=== PATIENT | female | born 1960 | race Caucasian/White ===

== ENCOUNTER 2017-08-01 07:04 | Emergency (ER) | END 2017-08-01 08:59 | disposition home or self-care (01) ==

== ENCOUNTER 2017-08-08 12:11 | Emergency (ER) | END 2017-08-08 18:54 | disposition home or self-care (01) ==

== ENCOUNTER 2017-08-17 06:59 | Emergency (ER) | END 2017-08-17 09:28 | disposition home or self-care (01) ==

== ENCOUNTER 2017-09-01 16:40 | Day surgery (SDC) | END 2017-09-02 00:31 | disposition home or self-care (01) ==

== ENCOUNTER 2017-11-28 07:20 | Emergency (ER) | END 2017-11-28 10:03 | disposition home or self-care (01) ==

== ENCOUNTER 2018-01-12 12:43 | Observation (INO) | END 2018-01-13 12:13 | disposition home or self-care (01) ==

== ENCOUNTER 2018-08-03 14:30 | Day surgery (SDC) | payer BC, OTHER ==
--- NOTE | 2018-07-30 21:22 | HP ---
Date/Time of Note Date/Time of Note DATE: 07/30/18 TIME: 21:10 Assessment/Plan VTE Prophylaxis SCD applied (from Ns): Yes Pharmacological prophylaxis: heparin Assessment/Plan Problems: (1) Preoperative examination Status: Acute Comment: At this time find Ms. Elaine to be acceptable surgical candidate and concur with your plans to proceed with surgery. Due to the limited nature of the surgery I do not believe that we need to give her stress dose steroids. As such she should do well using all standard routine anesthesia precautions. (2) Essential hypertension Status: Chronic Comment: Adequate control on her current medication regimen (3) Hyperlipidemia Status: Chronic Comment: Adequate control on her current statin therapy Qualifiers: Hyperlipidemia type: pure hypercholesterolemia Qualified Codes: E78.00 - Pure hypercholesterolemia, unspecified (4) Gastroesophageal reflux disease Status: Chronic Comment: Adequate control with her present PPI therapy Qualifiers: Esophagitis presence: without esophagitis Qualified Codes: K21.9 - Gastro- esophageal reflux disease without esophagitis (5) Triple negative malignant neoplasm of breast Status: Chronic Comment: Noted. In remission (6) Polymyalgia rheumatica Status: Chronic Comment: Noted. She has been on steroids for this for very long time and we recently managed to titrate her down to the present dosing regimen. This is a stable physiologic replacement regimen and she should continue with this. (7) Iatrogenic adrenal insufficiency Status: Chronic Comment: On adequate replacement at this time (8) Acquired hypothyroidism Status: Chronic Comment: On adequate thyroid hormone replacement at this time CC: ALAN TODD MD ; HPI/ROS Admit Date/Time Admit Date/Time August 03, 2018 Hx of Present Illness She is a [facility] 57-year-old female being brought in electively for removal of right ankle hardware. She sustained a significant fracture of the right ankle 1 year ago and had hardware placed. She is now coming in for removal of said hardware due to having symptoms relatable to the retained hardware. ROS Constitutional: no complaints (No fevers chills or sweats) Eyes: no complaints ENT: no complaints Respiratory: no complaints Cardiovascular: no complaints Gastrointestinal: no complaints Genitourinary: no complaints Musculoskeletal: other (Right ankle pain) Skin: no complaints Neurologic: no complaints Endocrine: no complaints Psychological: no complaints, nl mood/affect PMH/Family/Social Past Medical History Medical History: cancer ( triple negative breast cancer), GERD, high cholesterol, hypertension, hypothyroid, other (Polymyalgia rheumatica; iatrogenic and renal insufficiency; allergic rhinitis; osteoarthritis; colonic polyposis; history of TIA in 2017) Medications Omeprazole 40 mg every morning; levothyroxine 125 mcg once a day; hydrocortisone 10 mg in the morning 5 mg afternoon 5 mg at bedtime; venlafaxine ER 150 mg once a day; Bystolic 5 mg once a day; atorvastatin 40 mg once a day; vitamin D 2000 units a day; multiple vitamin once a day. 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 Exam Exam Modestly cushingoid appearance Constitutional: alert, oriented Psych: no complaints Head: normocephalic, atraumatic Eyes: nl conjunctiva, EOMI, nl lids, nl sclera, PERRL ENMT: nl external ears & nose, nl lips & teeth, nl nasal mucosa & septum, mucosa pink and moist Neck: supple, non-tender, other (Normal thyroid; no bruits) Respiratory: clear to auscultation, normal air movement Cardiovascular: regular rate and rhythm, nl pulses Gastrointestinal: soft, nl liver, spleen, non-tender Musculoskeletal: nl extremities to inspection, other (Antalgic gait) Extremities: normal pulses Neurological: [employer]OR II-XII intact, nl mental status, nl speech, nl strength Skin: nl ROB Lazcano MD Jul 30, 2018 21:22
[~2018-08-03] VITALS: Ht 170.2 cm; Wt 115.4 kg
[2018-08-03] VITALS (7 sets, daily range): BP systolic 94–131; BP diastolic 53–68; PULSE 74–93; RESP 11–26; Ht 170.2 cm; Wt 115.4 kg
[~2018-08-03 14:30] MED LIST: ASPI325T32 PO; ATOR40TA68 PO; CEFAZOLIN 1 GM INJ ONE; CORT25TA PO; HYDR5TAB PO; HYDR5TAB7 PO; LEVO125T7 PO; NEBI5TAB9 PO; OMEP10SU2 PO; PROPOFOL 200 MG INJ ONE; VENL150C PO
[2018-08-03] MEDS ORDERED: POLYMYXIN B 500000 UNIT INJ ONE (15:33)
--- NOTE | 2018-08-03 15:55 | PREAC ---
Date/Time of Note Date/Time of Note DATE: 08/03/18 TIME: 15:53 Anesthesia Eval and Record Evaluation Time Pre-Procedure Interview DATE: 08/03/18 TIME: 15:53 Age 57 Sex female NPO: 8 hrs Preoperative diagnosis RIGHT PAINFUL ANKLE HARDWARE Planned procedure RIGHT ANKLE REMOVAL OF HARDWARE, IRRIGATION AND DEBRIDEMENT Past Medical History Past Medical History: Includes Cardio: HTN, Dyslipidemia Endo: Hypothyroid, Other (ADRENAL INSUFFICIENCY) Musculoskeletal: Other (POLYMYALGIA RHEUMATICA) Surgery & Anesthesia Issues No known issue Meds Anticoagulation: No Beta Brant within 24 hr: No Reason Beta Brant not given: Pt. not on B-Brant Active Scripts Atorvastatin* (Atorvastatin*) 40 Mg Tablet, 40 MG PO QHS, #60 TAB 1 Refill Prov:RHONDAREI 01/13/18 Aspirin* (Aspirin* EC) 325 Mg Tab, 325 MG PO DAILY, #90 TAB 3 Refills Prov:RHONDAREI GOLDEN 01/13/18 Reported Medications Omeprazole* (Prilosec*) 10 Mg Suspdr.pkt, 10 MG PO AC BREAKFAST, PKT 01/12/18 Hydrocortisone* (Cortef*) 5 Mg Tab, 15 MG PO QAM, #180 TAB 01/12/18 Hydrocortisone* (Cortef*) 5 Mg Tab, 10 MG PO NOON, #120 TAB 01/12/18 Hydrocortisone (Hydrocortisone) 5 Mg Tablet, 5 MG PO QPM, TAB 01/12/18 Cortisone Acetate (Cortisone) 25 Mg Tablet, 15 MG PO QAM, TAB 01/12/18 Venlafaxine Hcl* (Effexor XR*) 150 Mg Cap.sr.24h, 150 MG PO DAILY, CAP 01/12/18 Nebivolol* (Bystolic*) 5 Mg Tab, 5 MG PO DAILY, #30 TAB 01/12/18 Levothyroxine Sodium* (Levothyroxine Sodium*) 125 Mcg Tablet, 125 MCG PO BEFORE BREAKFAST, #30 TAB 01/12/18 Meds reviewed: Yes Allergies Coded Allergies: codeine (Verified Allergy, Unknown, hives, 11/28/17) Allergies Reviewed: Yes Labs/Studies Labs Reviewed: Reviewed by anesthesiologist test: N/A Studies: ECG (INCOMPLETE RBBB), CXR (Calcified aorta consistent with atherosclerotic disease.) Pre-procedure Exam Last vitals Vital Signs Date Temp Pulse Resp B/P (MAP) Pulse Ox O2 O2 Flow FiO2 Time Delivery Rate 08/03/18 98.9 93 16 131/57 92 Room Air 15:47 (81) Airway: Adequate mouth opening, Adequate thyromental dist Mallampati: Mallampati II Teeth: Normal Lung: Normal Heart: Normal ASA Physical Status ASA physical status: 3 Emergency: None Planned Anesthetic General/MAC: TIVA Nerve block: Sciatic (right) Planned Pain Management Single shot nerve block, Parenteral pain med Pre-operative Attestations Prior to commencing anesthesia and surgery, the patient was re-evaluated, there was verification of: *The patient's identity *The results of appropriate recent lab work and preoperative vital signs *The above evaluation not changing prior to induction *Anesthetic plan, risk benefits, alternative and complications discussed with patient/family; questions answered; patient/family understands, accepts and wishes to proceed. Rodrick Welch M.D. Aug 03, 2018 15:55
[2018-08-03] MEDS ORDERED: FENTAnyl 50 MCG/ML VIAL ONE (15:58)
[2018-08-03] MEDS ORDERED: ONDANSETRON 4 MG INJ ONE (15:59)
[2018-08-03] MEDS ORDERED: FENTAnyl 50 MCG/ML VIAL IV PRN ×3 (16:00)
[2018-08-03] MEDS ORDERED: HYDROmorphONE 1 MG/5 ML IV SYRINGE IV PRN ×3 (16:00)
[2018-08-03] MEDS ORDERED: IPRATROPIUM (NEB) 0.5 MG/2.5 ML AMP HHN PRN (16:00)
[2018-08-03] MEDS ORDERED: TRIMETHOBENZAMIDE 100 MG/ML VIAL IM PRN (16:00)
[2018-08-03] MEDS ORDERED: LABETALOL HCL 20MG INJ IV PRN (16:00)
[2018-08-03] MEDS ORDERED: hydrALAzine 20 MG INJ IV PRN (16:00)
[2018-08-03] MEDS ORDERED: MIDAZOLAM 1 MG/ML 2 ML INJ IV PRN (16:00)
[2018-08-03] MEDS ORDERED: DIPHENHYDRAMINE 50 MG INJ IV PRN (16:00)
[2018-08-03] MEDS ORDERED: ONDANSETRON 4 MG INJ IV PRN (16:00)
[2018-08-03] MEDS ORDERED: ALBUTEROL 0.083% (NEB) 2.5 MG/3 ML AMP HHN PRN (16:00)
[2018-08-03] MEDS ORDERED: MEPERIDINE 25 MG INJ IV PRN (16:00)
[2018-08-03] MEDS ORDERED: EPHEDrine SULFATE 50 MG/5 ML SYG IV PRN (16:00)
[2018-08-03] MEDS ORDERED: ROPIVACAINE 0.5 % 30 ML VIAL ONE (16:00)
[2018-08-03] MEDS ORDERED: VENL150T PO (16:00)
[2018-08-03] MEDS ORDERED: ASCO500C10 PO (16:00)
[2018-08-03] MEDS ORDERED: MIDAZOLAM 1 MG/ML 2 ML INJ ONE (16:06)
--- NOTE | 2018-08-03 16:09 | HPN ---
Date/Time of Note Date/Time of Note DATE: 08/03/18 TIME: 16:08 Interval H&P Admission Note Pt. seen H&P reviewed: No system changes ALAN TODD MD Aug 03, 2018 16:09
[2018-08-03] MEDS ORDERED: morphine 2 MG INJ IV PRN (16:30)
[2018-08-03] MEDS ORDERED: KETOROLAC 30 MG INJ IV SCH (16:30)
[2018-08-03] MEDS ORDERED: BACITRACIN 50000 UNITS INJ IRR ONE (17:01)
[2018-08-03] MEDS ORDERED: DEXAMETHASONE 4 MG/ML 5 ML INJ ONE (17:09)
[2018-08-03] MEDS ORDERED: BACITRACIN/POLYMYXIN 28.35 GM OINT TOP ONE (17:33)
--- NOTE | 2018-08-03 18:34 | QN ---
Documentation Job number: [id number] ALAN TODD MD Aug 03, 2018 18:34
--- NOTE | 2018-08-03 18:54 | PAC ---
Date/Time of Note Date/Time of Note DATE: 08/03/18 TIME: 18:54 Post-Anesthesia Notes Post-Anesthesia Note Last documented vital signs Vital Signs Date Temp Pulse Resp B/P (MAP) Pulse Ox O2 O2 Flow FiO2 Time Delivery Rate 08/03/18 74 11 106/68 94 Room Air 18:14 (81) 08/03/18 98.2 18:08 08/03/18 3.0 17:54 Activity: WNL Respiratory function: WNL Cardiovascular function: WNL Mental status: Baseline Pain reasonably controlled: Yes Hydration appropriate: Yes Nausea/Vomiting absent: Yes Rodrick Welch M.D. Aug 03, 2018 18:54
--- NOTE | 2018-08-03 23:40 | OPR ---
DATE OF OPERATION: 08/03/2018 SURGEON: Logan Davis MD MACHINE BRUSHER: None. PREOPERATIVE DIAGNOSES: 1. Right ankle painful hardware. 2. Right ankle draining wound. 3. Right ankle hypertrophic scar. POSTOPERATIVE DIAGNOSES: 1. Right ankle painful hardware. 2. Right ankle draining wound. 3. Right ankle hypertrophic scar. PROCEDURE: 1. Right ankle irrigation and debridement. 2. Right ankle hardware removal. 3. Right ankle revision of hypertrophic scar, 8 cm. 4. Application of amniotic membrane. ANESTHESIOLOGIST: Dr. Welch ANESTHESIA TYPE: MAC with popliteal block. IMPLANTS: [employer]Medx AmnioFix. TOURNIQUET TIME: 43 minutes at 275 mmHg. SPECIMENS: None. DISPOSITION: To PACU. INDICATIONS: The patient is a thin female who sustained a right ankle Maisonneuve fracture, dislocat ion approximately 6 months ago and was indicated for surgery at that time treated with an ORIF approx imately 1 year ago, 09/01/2017. Since then, the patient had been doing well until recently when her pain has increased significantly in her ankle with some weeping from the skin and also hypertrophic s car. The patient was indicated for surgery. RISK NOTE: ____. DESCRIPTION OF PROCEDURE: The patient was met in the preoperative holding area and the operative rodas b was marked. Informed the patient and consent. The patient was brought to the operative theater an d placed supine on operative table, given preoperative antibiotics prior to general anesthesia and re gional block anesthesia. The patient was prepped in normal sterile fashion. On the operating room a ll parties agreed this was correct patient, extremity and procedure. The tourniquet to 200 mmHg and attention was initially turned to the right ankle and incision was made over the previous incision an d the hypertrophic scar was excised and the skin was then mobilized freely up anteriorly and posterio rly. An incision was brought down to the ankle to the fibula. The 4 screws and plate were identifie d and removed without complication. Cultures were taken x2 sent for aerobic and anaerobic. The woun d was then irrigated thoroughly with 3 liters of normal saline, apply some bacitracin and screws were curetted. The wound was finally irrigated again and then an AmnioFix membrane was placed deep over the wound site closed in layers with 2-0 Vicryl, followed by 3-0 Monocryl and a running 4-0 Monocryl followed by Steri-Strips and then topped with a B6 and antibiotic ointment. The patient was placed i n a well-padded short leg splint and tolerated on the application by the PACU with her toes warm and well perfused. All sponge and needle counts were correct. Dictated By: LOGAN ELIZONDO/NTS Conf#: [id number] DID#: [id number]
== END 2018-08-03 18:57 | disposition home or self-care (01) ==
LOC: SDS 14:30
PROVIDERS: ATTEND Orthopaedic Surgery
DX: T84.84XD Pain due to internal orthopedic prosthetic devices, implants and grafts, subsequent encounter (principal); Y79.3 Surgical instruments, materials and orthopedic devices (including sutures) associated with adverse incidents; L91.0 Hypertrophic scar; I10 Essential (primary) hypertension; E78.5 Hyperlipidemia, unspecified; E03.9 Hypothyroidism, unspecified
CPT/HCPCS: 20670; 71045; 73610; 82306; 87070; 87075; 87102; 88300; 88304; J0690; J1885; J2250; J2405; J2795; J3010; J1100